=== PATIENT | female | born 1960 | race Caucasian/White ===

== ENCOUNTER → 2019-10-17 16:00 | Outpatient (CLI) | payer OTHER, SELFPAY ==
--- NOTE | 2019-10-17 | DI.MG.S_ITS ---
BILATERAL DIGITAL SCREENING MAMMOGRAM 3D/2D WITH CAD WITH AUGMENTATION: 10/17/2019 CLINICAL: Routine screening. Comparison is made to exams dated: 12/16/2017 mammogram, 04/08/2016 mammogram, and 08/20/2014 mammogram - outside location. There are scattered fibroglandular elements in both breasts. Current study was also evaluated with a Computer Aided Detection (CAD) system. There is a possible new asymmetry in the left breast middle depth central to the nipple seen on the craniocaudal view only. There also is possible architectural distortion in the left breast posterior depth superior region seen on the mediolateral oblique view only. Stable retropectoral implants. No other significant masses, calcifications, or other findings are seen in either breast. IMPRESSION: INCOMPLETE: NEEDS ADDITIONAL IMAGING EVALUATION The possible new asymmetry in the left breast middle depth central to the nipple seen on the craniocaudal view only is indeterminate. Additional views with possible ultrasound are recommended. The possible architectural distortion in the left breast posterior depth superior region seen on the mediolateral oblique view only is indeterminate. Additional views with possible ultrasound are recommended. This exam was interpreted at Station ID: [id number]. NOTE: For mammograms, a report in lay terms will be sent to the patient. Approximately 15% of breast malignancies will not be visualized mammographically. In the management of a palpable breast mass, a negative mammogram must not discourage biopsy of a clinically suspicious lesion. Electronically Signed By: Johnny Sullivan M.D. slc/:10/18/2019 13:07:05 letter sent: Additional Imaging Needed ACR BI-RADS Category 0: Incomplete [id number]
== END ==
PROVIDERS: PCP Family Medicine; Referring Provider Family Medicine; Visit Provider Family Medicine
DX: Z12.31 Encounter for screening mammogram for malignant neoplasm of breast (principal)
CPT/HCPCS: 77063; 77067

== ENCOUNTER → 2019-11-09 08:34 | Outpatient (CLI) | payer OTHER, SELFPAY ==
--- NOTE | 2019-11-09 09:01 | DI.MG.S_ITS ---
Patient Name: JC PLASENCIA date: 1960 Sex: F Attending Physician: Tonja Indications: Date: 11/09/2019 08:51 At the request of: SP HYDE Procedure: MM special view LT UNILATERAL LEFT DIGITAL DIAGNOSTIC MAMMOGRAM 3D/2D WITH ADDITIONAL VIEWS: 11/09/2019 CLINICAL: Additional evaluation requested from prior study. Comparison is made to exams dated: 10/17/2019 mammogram - [facility], 12/16/2017 mammogram, and 04/08/2016 mammogram - outside location. There are scattered fibroglandular elements in left breast. The oval asymmetry with indistinct margins in the left breast posterior depth central to the nipple seen on the craniocaudal view only is not seen on additional views. The possible architectural distortion in the left breast posterior depth superior region seen on the mediolateral oblique view only is not seen on additional views. No other significant masses or calcifications are seen in the breast. IMPRESSION: BENIGN There is no mammographic evidence of malignancy. A 1 year screening mammogram is recommended. This exam was interpreted at Station ID: [id number]. NOTE: For mammograms, a report in lay terms will be sent to the patient. Approximately 15% of breast malignancies will not be visualized mammographically. In the management of a palpable breast mass, a negative mammogram must not discourage biopsy of a clinically suspicious lesion. Electronically Signed By: Moisés Quiroz M.D. ddp/:11/09/2019 09:26:47 Continued Report - Page 2 of 2 Patient Name: JC PLASENCIA date: 1960 Sex: F Attending Physician: Tonja Indications: Date: 11/09/2019 08:51 At the request of: SP HYDE Procedure: MM special view LT letter sent: Normal Exam ACR BI-RADS Category 2: Benign Finding(s) 3342F
== END ==
PROVIDERS: Referring Provider Family Medicine; Visit Provider Family Medicine
DX: R92.8 Other abnormal and inconclusive findings on diagnostic imaging of breast (principal)
CPT/HCPCS: 77065; G0279

== ENCOUNTER → 2021-02-09 09:17 | Outpatient (CLI) | payer OTHER, SELFPAY ==
--- NOTE | 2021-02-09 | DI.MG.S_ITS ---
BILATERAL DIGITAL SCREENING MAMMOGRAM 3D/2D WITH CAD WITH AUGMENTATION: 02/09/2021 CLINICAL: Routine screening. Comparison is made to exams dated: 10/17/2019 mammogram - [facility], 12/16/2017 mammogram, and 04/08/2016 mammogram - outside location. There are scattered fibroglandular elements in both breasts. Current study was also evaluated with a Computer Aided Detection (CAD) system. There is a new 1 cm oval equal density focal asymmetry in the left breast at 6 o'clock posterior depth. No other significant masses, calcifications, or other findings are seen in either breast. IMPRESSION: INCOMPLETE: NEEDS ADDITIONAL IMAGING EVALUATION The new 1 cm oval equal density focal asymmetry in the left breast resembles a cyst and is indeterminate. Additional views with possible ultrasound are recommended. This exam was interpreted at Station ID: [id number]. NOTE: For mammograms, a report in lay terms will be sent to the patient. Approximately 15% of breast malignancies will not be visualized mammographically. In the management of a palpable breast mass, a negative mammogram must not discourage biopsy of a clinically suspicious lesion. Electronically Signed By: Saravanan belle/ivelisse:02/09/2021 11:18:32 letter sent: Additional Imaging Needed ACR BI-RADS Category 0: Incomplete [id number]
== END ==
PROVIDERS: PCP Student in an Organized Health Care Education/Training Program; Referring Provider Student in an Organized Health Care Education/Training Program; Visit Provider Student in an Organized Health Care Education/Training Program
DX: Z12.31 Encounter for screening mammogram for malignant neoplasm of breast (principal)
CPT/HCPCS: 77063; 77067

== ENCOUNTER → 2021-03-16 12:05 | Outpatient (CLI) | payer OTHER, SELFPAY ==
--- NOTE | 2021-03-16 | DI.MG.S_ITS ---
UNILATERAL LEFT DIGITAL DIAGNOSTIC MAMMOGRAM 3D/2D WITH ADDITIONAL VIEWS: 03/16/2021 CLINICAL: Additional evaluation requested from prior study. Comparison is made to exams dated: 02/09/2021 mammogram, 11/09/2019 mammogram, 10/17/2019 mammogram - [facility], 12/16/2017 mammogram, and 04/08/2016 mammogram - outside location. There are scattered fibroglandular elements in left breast. There is a new 1 cm oval equal density focal asymmetry in the left breast at 6 o'clock posterior depth. No other significant masses or calcifications are seen in the breast. IMPRESSION: INCOMPLETE: NEEDS ADDITIONAL IMAGING EVALUATION Focal asymmetry in the left breast is indeterminate. A targeted ultrasound is recommended and will immediately follow. This exam was interpreted at Station ID: [id number]. NOTE: For mammograms, a report in lay terms will be sent to the patient. Approximately 15% of breast malignancies will not be visualized mammographically. In the management of a palpable breast mass, a negative mammogram must not discourage biopsy of a clinically suspicious lesion. Electronically Signed By: Johnny Sullivan M.D. slc/:03/16/2021 12:36:12 ACR BI-RADS Category 0: Incomplete [id number]
--- NOTE | 2021-03-16 | DI.US.S_ITS ---
LIMITED ULTRASOUND OF LEFT BREAST AND AXILLA: 03/16/2021 CLINICAL: Patient returns today to evaluate a focal asymmetry in the left breast. Comparison is made to exams dated: 03/16/2021 mammogram, 02/09/2021 mammogram, 11/09/2019 mammogram, 10/17/2019 mammogram - [facility], 12/16/2017 mammogram, and 04/08/2016 mammogram - outside location. Color flow and real-time ultrasound of the left breast axilla were performed. Delacruz scale images of the real-time examination were reviewed. There is a 1.6 cm x 1.2 cm x 0.9 cm oval mass with a spiculated margin in the left breast at 5 o'clock posterior depth 2 cm from the nipple. This oval mass is heterogeneously echogenic. This correlates with mammography findings. Color flow imaging demonstrates that there is vascularity present. No significant abnormalities were seen sonographically in the left axilla. IMPRESSION: SUSPICIOUS OF MALIGNANCY The 1.6 cm x 1.2 cm x 0.9 cm oval mass in the left breast is at a high suspicion for malignancy. An ultrasound guided biopsy is recommended. Exam findings were discussed with the patient by Dr. Theodore. This exam was interpreted at Station ID: [id number]. Electronically Signed By: Johnny Sullivan M.D. [facility] [place]/:03/16/2021 13:25:43 letter sent: Biopsy Required Ultrasound BI-RADS: 4c High suspicion of malignancy
== END ==
PROVIDERS: PCP Student in an Organized Health Care Education/Training Program; Referring Provider Student in an Organized Health Care Education/Training Program; Visit Provider Student in an Organized Health Care Education/Training Program
DX: R92.2 Inconclusive mammogram (principal); N63.23 Unspecified lump in the left breast, lower outer quadrant
CPT/HCPCS: 76642; 77065; G0279

== ENCOUNTER → 2021-03-27 07:50 | Outpatient (CLI) | payer OTHER, SELFPAY ==
--- NOTE | 2021-03-27 | DI.US.S_ITS ---
ULTRASOUND GUIDED BIOPSY LEFT BREAST USING VACUUM DEVICE WITH MARKING DEVICE INSERTED AND POST MAMMOGRAPHIC IMAGIN03/27/2021 CLINICAL: Left breast mass. Left breast lump-post clip. PATIENT CONSENT: Risks (minor bleeding, infection, vasovagal reaction and repeat procedure), benefits and alternatives were explained to the patient and written informed consent was obtained. Correlation is made to exams dated: 03/16/2021 ultrasound, 03/16/2021 mammogram, 02/09/2021 mammogram, and 11/09/2019 mammogram - [facility]. An ultrasound guided biopsy using real-time ultrasound was performed for the concerning 1.6 cm x 1.2 cm x 0.9 cm oval mass located in the left breast at 5 o'clock posterior depth 2 cm from the nipple. This was described on the previous ultrasound report. The skin was prepped in the usual manner. Local anesthetic was administered to the access site. A small incision was made in the breast. The abnormality was approached from the lateral aspect. A 10 gauge biopsy needle was placed adjacent to the abnormality under ultrasound guidance. Once the needle was documented to be in the correct location, four specimens were obtained using the Mammotome biopsy system. A hydromark clip was inserted into the biopsy cavity. A skin closure strip and a sterile dressing were applied to the access site. Post procedure mammographic imaging demonstrates the location device at the targeted area. The specimens were sent to the laboratory for pathological analysis. IMPRESSION: ULTRASOUND GUIDED BIOPSY MALIGNANT Ultrasound guided biopsy of the 1.6 cm x 1.2 cm x 0.9 cm mass in the left breast at 5 o'clock posterior depth 2 cm from the nipple was successful. 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 Pathology results are concordant with imaging findings. A surgical/oncologic consultation is recommended. Results and recommendations will be communicated to the ordering provider's office. This exam was interpreted at Station ID: [id number]. Alex reyes,krjeancarlos/:04/13/2021 09:27:10
--- NOTE | 2021-03-27 | DI.MG.S_ITS ---
UNILATERAL LEFT DIGITAL DIAGNOSTIC MAMMOGRAM 3D/2D POST-EXCISIONAL BIOPSY WITH AUGMENTATION: 03/27/2021 CLINICAL: Post clip. Comparison is made to exam dated: 03/16/2021 mammogram - [facility]. There are scattered fibroglandular elements in left breast. There is a marker clip in the appropriate position in the left breast at 6 o'clock posterior depth 2 cm from the nipple. This marker clip placement is at the biopsy site. IMPRESSION: POST PROCEDURE MAMMOGRAM FOR MARKER PLACEMENT There was a successful marker clip placement in the left breast posterior depth. Follow-up with ACR/ACS guidelines. Future imaging is recommended as follows: 04/16/2021 . This exam was interpreted at Station ID: Unknown. NOTE: For mammograms, a report in lay terms will be sent to the patient. Approximately 15% of breast malignancies will not be visualized mammographically. In the management of a palpable breast mass, a negative mammogram must not discourage biopsy of a clinically suspicious lesion. Electronically Signed By: barbra Hopper M.D., M.D./ivelisse:04/21/2021 14:52:23 ACR BI-RADS Category Post-procedure mammogram for marker placement
--- NOTE | 2021-03-27 | PATH_ITS ---
[facility] Accession Number: [id number] . 01 Material submitted: . breast - LEFT BREAST MASS 5:00 2CMFN . 02 Diagnosis: Left Breast Mass, 5 o'clock, 2 cm from Nipple, Needle Core Biopsy: Classic adenoid cystic carcinoma. No high grade (basaloid) features identified. Please see Cancer Case Summary. . . CANCER CASE SUMMARY: . Specimen Procedure: Needle core biopsy. Laterality: Left. . Tumor Tumor site: 5 o'clock, 2 cm from nipple; lower outer quadrant. Histologic type: Adenoid cystic carcinoma, classic type (tubular and cribriform growth patterns). Tumor size: Present in three of three tissue fragments, greatest dimension of largest focus is 1.5 cm. Carcinoma in-situ: Not identified. Lymphovascular invasion: Not identified. Perineural invasion: Not identified. Solid growth / basaloid pattern: Not identified. [facility] 04/03/2021 1505 Local . 02 Comment: As part of routine water quality assistant, Dr. Lcoo also reviewed this case and agrees with the diagnosis. . Results discussed with Dr. Ponce on 04-03-21 at [facility] 1:08 p.m. . 02 Electronically signed: . Jihan Etienne MD, Pathologist NPI- [id number] . 01 Gross description: . Received one formalin-filled container, labeled with the patient's name and designated left breast mass 5 o'clock 2 cm FN. The specimen is received with a plastic filter in container, sample loose in container and consists of multiple fragments of yellow-ness soft tissue which range in size from 0.1 x 0.1 x 0.1 cm to 1.4 x 0.2 x 0.2 cm. The specimen is entirely submitted in one cassette. Possible collection date and time per requisition: 03/27/21 at 9:01. Total fixation time: Approximately 41 hours. (DC:[id number]) /[facility] 03/28/2021 1608 Local . 02 Microscopic: . An immunohistochemistry study is performed to evaluate the cells of interest. The control stain shows appropriate reactivity. . RESULTS: ER: Negative. MT: Negative. HER2: Negative at 1+. VADIM-3: Negative. Myosin: Myoepithelial / basaloid cells diffusely positive. P63: Myoepithelial / basaloid cells diffusely positive. CD117: Luminal / ductal epithelial cells positive. CK 7: Luminal / ductal epithelial cells positive. CD10: Myoepithelial / basaloid cells positive. PAS: Positive secretions within true lumina. . The neoplastic cells demonstrate PAS positive intraluminal material. Immunostaining demonstrates the presence of a dual cell population. The myoepithelial / basaloid cells are immunopositive for p63, CK10, and smooth muscle myosin. The luminal / ductal epithelial cells are immunopositive for CD117 and CK7. The neoplastic cells are immunonegative for VADIM-3, ER, MT, and HER2 (1+). These findings are most consistent with an adenoid cystic carcinoma of the breast, classic tubular and cribriform pattern. No solid growth pattern / basaloid / high grade features are identified. . * This test was developed and its performance characteristics determined by [facility]. It has not been cleared or approved by the U.S. Food and Drug Administration. The FDA has determined that such clearance or approval is not necessary. This test is used for clinical purposes. It should not be regarded as investigational or for research. . 02 Pathologist provided ICD-10: C50.912 . 02 CPT . 859953, M58274, C88842, 305257 Performed at: 01 [facility] [address] [facility], [place], [place] [id number] MD Moisés Castellanos MD Phone: [phone] Performed at: 02 [facility] [place] [address] [place], [place] [id number] MD Shelby Merritt MD Phone: [phone]
== END ==
PROVIDERS: PCP Student in an Organized Health Care Education/Training Program; Referring Provider Student in an Organized Health Care Education/Training Program; Visit Provider Student in an Organized Health Care Education/Training Program
DX: C50.512 Malignant neoplasm of lower-outer quadrant of left female breast (principal); Z17.1 Estrogen receptor negative status [ER-]
CPT/HCPCS: 19083; 77065

== ENCOUNTER → 2021-04-10 10:48 | Outpatient (CLI) | payer OTHER, SELFPAY ==
[2021-04-10 12:56] LABS: COVID19 -Nasal RAPID Negative (Negative)
== END ==
PROVIDERS: PCP Student in an Organized Health Care Education/Training Program; Visit Provider Family Medicine Sleep Medicine
DX: Z20.822 Contact with and (suspected) exposure to COVID-19 (principal)
CPT/HCPCS: 87635; C9803

== ENCOUNTER 2021-04-16 10:32 | Day surgery (SDC) | payer OTHER, SELFPAY ==
[2021-04-10 13:17] VITALS: BMI 41.8
[2021-04-16] VITALS (15 sets, daily range): BP systolic 117–149; BP diastolic 51–75; PULSE 61–98; RESP 14–18; TEMP 36.2–36.9; O2SAT 91–100; BMI 41.8
--- NOTE | 2021-04-16 | DI.MG.S_ITS ---
SPECIMEN LEFT BREAST: 04/16/2021 CLINICAL: Left surgical specimen. Correlation is made to exams dated: 03/27/2021 mammogram, 03/27/2021 ultrasound biopsy, and 03/16/2021 mammogram - [facility]. Three partial mastectomy specimens were imaged for the concerning indistinct oval mass located in the left breast at 6 o'clock middle depth. This was described on the previous mammography and ultrasound reports. IMPRESSION: SPECIMEN The imaged specimens include the mass and a biopsy clip. The specimens show characteristics of the mammographic and sonographic findings. This exam was interpreted at Station ID: [id number]. Moisés Quiroz M.D. ddp/:04/16/2021 15:26:39
--- NOTE | 2021-04-16 | PATH_ITS ---
[facility] Accession Number: [id number] No. of containers..01 Tissue . 01 Material submitted: . breast - LEFT BREAST . 01 Clinical history: . LEFT BREAST, LONG STITCH LATERAL . 02 Diagnosis: A. Left Breast, Simple Mastectomy: Adenoid cystic carcinoma, grade 2 of 3 ([place] combined histologic grade, total score 6/9) with the following features: 1. Tumor size (invasive component): 15 mm, by microscopic measurement. 2. Nuclear pleomorphism: Intermediate. (2/3) 3. Mitotic rare: Low. (1/3) 4. Tubular differentiation: Moderate to little degree. (2-3/3) 5. Ductal carcinoma in situ: Absent. 6. Calcifications: Present, in association with benign breast tissue. 7. Lymphatic or perineural invasion: Not identified. 8. Resection margins: Negative, with the closest distances to margins as follows: - Anterior inferior margin: 2.5 mm. - Anterior superior and posterior margins: More than 10 mm. 9. Breast biomarkers performed on prior biopsy ([facility] Case #[id number], 03/27/2021), per the report: - Estrogen receptor status: Negative. - Progesterone receptor status: Negative. - HER2 status: Negative. 10. Regional lymph node status: No lymph nodes submitted or identified within the specimen. 11. Additional findings: - Rare focus of atypical ductal hyperplasia. - Skin and nipple areolar complex are not involved by carcinoma. - Background of breast parenchyma with florid usual ductal hyperplasia, columnar cell change/columnar cell hyperplasia, and focal apocrine metaplasia. - Biopsy site changes/marker are identified. - Skeletal muscle and/or chest wall are not present for evaluation. 12. Pathologic stage: pT1c pNX. . . COMMENT: The grading of adenoid cystic carcinoma using Marie grading system is challenging. The adenoid cystic carcinoma demonstrates a classic morphology with a mixture of tubular and cribriform glandular patterns. There is no evidence of basaloid or high-grade features. [facility] 04/20/2021 1703 Local . 02 Electronically signed: . Marina Loco MD, Pathologist NPI- [id number] . 01 Gross description: . Received in formalin labeled with the patient's name and additionally labeled left breast, long stitch lateral is a mastectomy specimen measuring 19.0 ML x 12.0 SI x 6.2 AP cm. There is an overlying ellipse of skin measuring 15.5 ML x 3.2 SI cm. The ill-defined nipple areolar complex measures 2.2 x 2.2 cm and the nipple measures 1.0 x 0.9 x 0.3 cm. The specimen is received with a suture designated by the surgeon to represent the lateral aspect of the specimen. The specimen is inked as follows: superior anterior blue, inferior anterior orange, and posterior black. The posterior fascia moves freely. The specimen is serially sectioned from medial to lateral revealing an ill-defined firm nodule measuring 1.1 x 1.0 x 0.6 cm in the lower outer quadrant. The mass is free of the anterior inferior orange inked margin by 1.0 cm and is widely free of other inked margins. The mass is sectioned further revealing pale guzmán cut surfaces and a cavity containing a biopsy marker. The remaining cut surfaces consists of predominantly yellow lobated adipose tissue and approximately 10-20 percent fibrous breast parenchyma. No other masses or lesions are identified. Over Short And Damage Clerk sections are submitted as follows: . A1-A4 - Mass, sectioned and entirely submitted. A5-A6 - Composite section of nipple areolar complex. A7 - Fibrous parenchyma from the lateral aspect of the specimen. A8 - Fibrous breast parenchyma from the medial aspect of the specimen. (MS:[id number]) /[facility] 04/17/2021 1643 Local . 02 Pathologist provided ICD-10: C50.912 . 02 CPT . 080933 Specimen Comment: A courtesy copy of this report has been sent to [phone] Performed at: [facility] [address] [place] [address] [address] [facility], [place], [place] [id number] MD Moisés Castellanos MD Phone: [phone] Performed at: 02 [facility] [id number] [place] [id number] MD Shelby Merritt MD Phone: [phone]
[2021-04-16 11:05] LABS: COVID19 -Nasal RAPID Negative (Negative)
--- NOTE | 2021-04-16 11:08 | PM.PREOP ---
Pre-operative Note COVID-19 COVID-19 status: Negative Result date/Date tested (Pos, Neg/Pending): 04/10/21 Criteria for continued procedure: Deterioration of the patient's condition or overall health and Delay expected to result in less-positive ultimate med/surg outcome Interval Note History & Physical reviewed/Exam performed by Physician: Yes Changes to H&P: No ASA Class (for procedural sedation): II
[2021-04-16] MEDS: ACETAMINOPHEN 325 MG TABLET 975 MG PO (11:12)
[2021-04-16] MEDS: GABAPENTIN 300 MG CAPSULE PO (11:12)
[2021-04-16] MEDS: SCOPOLAMINE 1 PATCH TOP (11:13)
[2021-04-16] MEDS: LACTATED RINGERS 1,000 ML 42 ML IV ×2 (11:49→13:13)
[2021-04-16] MEDS: CEFAZOLIN 2 GM/20 ML SYRINGE IV (11:59)
--- NOTE | 2021-04-16 12:16 | SUR.OPER ---
Supine on padded OR bed, head on gel donut, arms secured on padded arm boards at <90 degrees abduction, legs uncrossed, lower legs propped by two pillows, safety belt at thigh, tape over blanket over lower legs, foam ramp under torso.
[2021-04-16] MEDS: BUPIVACAINE 0.5% (PF) 30 ML, EPINEPHrine 0.15 MG INJ (12:32)
[2021-04-16] MEDS: LIDOCAINE 1% 20 ML INJ (12:33)
--- NOTE | 2021-04-16 14:18 | P.OP_ITS ---
Operative Date/Time/Diagnoses Date of procedure: 04/16/21 Time of procedure: 14:18 Pre-op diagnosis: Left breast cancer Post-op diagnosis: same Procedure & Clinicians Procedure: Left simple mastectomy Same procedure as scheduled: Yes Indications: Left breast cancer Surgeon: Roberto Barnhart Anesthesia Type: General Operative Notes Procedure in detail: Preoperative antibiotics were given. The patient was brought to the operating room, placed on the table in the supine position and general anesthesia was induced via LMA. The arms were abducted on arm boards. The left breast and axilla were prepped and draped in the usual fashion. A time-out was performed. We made an elliptical skin incision encompassing the left areola and curving towards the axilla laterally. We used cautery to enter the plane between the b reast tissue in the subcutaneous adipose tissue. We developed the superior flap first. We carried the dissection to the superior aspect of the breast tissue and when we saw pectoralis muscle we started to turn and lift the breast off the pectoral fascia. Her breast tissue did not extend to the clavicle due to her age and laxity. We then created an inferior flap and dissected the breast tissue down to the inframammary fold. The old implant was visible sticking out from under the lateral and inferior portion of the pectoral muscle. It remained encapsulated we did not enter the capsule. We carried the dissection laterally to the edge of the latissimus muscle. We then removed the breast tissue from the field. We used a single silk stitch to roberto the lateral aspect. Finally, we irrigated the wound cavity with 2 L of saline. We checked for hemostasis and addressed a few small bleeders with cautery. We injected additional local into the muscle and fascia. We then placed 2 drains into the field. Drains were secured to the skin with a 2-0 nylon stitch. We then closed the incision in layers using interrupted 3-0 Vicryl dermal sutures followed by running 4-0 Monocryl subcuticular stitch. Dressings were applied and the patient was brought to recovery room. EBL: 20 mL Post-operative Condition: stable Disposition: PACU
--- NOTE | 2021-04-16 15:40 | PC.NURSE ---
Assess- Patient is alert and oriented x3.. She had a l. mastectomy and her incision and dressing are cdi. Patient has two melanie drains that are labeled one and two with minimal output in both.. Patient is resting comfortably now and denies pain.
[2021-04-16] MEDS: HYDROCODONE/ACET 5/325 TABLET 1 TAB PO (17:23)
[2021-04-16] MEDS: ACETAMINOPHEN 325 MG TABLET 650 MG PO (21:58)
[2021-04-17 03:00] VITALS: BP 104/47; PULSE 66; RESP 16; TEMP 36.2; O2SAT 94
[2021-04-17] MEDS: ACETAMINOPHEN 325 MG TABLET 650 MG PO ×2 (03:18→09:47)
[2021-04-17 08:52] VITALS: BP 127/52; PULSE 65; RESP 18; TEMP 36.6; O2SAT 98
[2021-04-17 10:27] VITALS: BP 122/58; PULSE 60; RESP 16; TEMP 36.8; O2SAT 97
--- NOTE | 2021-04-17 12:15 | PC.NURSE ---
Patient is a&ox4, dressing to l.breast mastectomy is cdi. Dr. Keenan into see patient and has taken dressing off with just some gauze on this. MERVIN drain 1 and 2 putting out minimal ss drainage. PT using tylenol for pain as she does not like the way vicodin makes her feel. Sitting up in the chair and eating breakfast.
== END 2021-04-17 14:11 | disposition home or self-care (01) ==
LOC: OR 15:16 → AC 15:17
PROVIDERS: PCP Student in an Organized Health Care Education/Training Program; Referring Provider Surgery; Visit Provider Surgery
PROC: 0HTU0ZZ Resection of Left Breast, Open Approach (ICD-10-PCS; CPT 19303; principal; 2021-04-16 11:45)
DX: C50.912 Malignant neoplasm of unspecified site of left female breast (principal); Z17.1 Estrogen receptor negative status [ER-]; E66.01 Morbid (severe) obesity due to excess calories; Z68.41 Body mass index [BMI] 40.0-44.9, adult; J45.20 Mild intermittent asthma, uncomplicated; G47.33 Obstructive sleep apnea (adult) (pediatric); K21.9 Gastro-esophageal reflux disease without esophagitis
CPT/HCPCS: 19303; 76098; 82962; 87635; J0171; J0330; J0690; J1100; J1885; J2250; J2405; J2704; J3010

== ENCOUNTER → 2022-03-16 13:59 | Outpatient (CLI) | payer OTHER, SELFPAY ==
[2021-04-16 15:21] VITALS: BMI 41.8
--- NOTE | 2022-03-16 | DI.MG.S_ITS ---
UNILATERAL RIGHT DIGITAL SCREENING MAMMOGRAM 3D/2D WITH CAD POST MASTECTOMY WITH AUGMENTATION: 03/16/2022 CLINICAL: Routine screening. Breast cancer. Comparison is made to exams dated: 02/09/2021 mammogram, 10/17/2019 mammogram - [facility], and 12/16/2017 mammogram - outside location. There are scattered areas of fibroglandular density in the right breast (category b / 25%-50% glandular tissue). Current study was also evaluated with a Computer Aided Detection (CAD) system. Right breast implant is stable. No significant masses, calcifications, or other findings are seen in the breast. There has been no significant interval change. IMPRESSION: NEGATIVE There is no mammographic evidence of malignancy. A 1 year screening mammogram is recommended. This exam was interpreted at Station ID: [id number]. NOTE: For mammograms, a report in lay terms will be sent to the patient. Approximately 15% of breast malignancies will not be visualized mammographically. In the management of a palpable breast mass, a negative mammogram must not discourage biopsy of a clinically suspicious lesion. Electronically Signed By: Fady holder/ivelisse:03/16/2022 14:52:57 letter sent: Normal Exam ACR BI-RADS Category 1: Negative 3341F
== END ==
PROVIDERS: PCP Student in an Organized Health Care Education/Training Program; Referring Provider Student in an Organized Health Care Education/Training Program; Visit Provider Student in an Organized Health Care Education/Training Program
DX: Z12.31 Encounter for screening mammogram for malignant neoplasm of breast (principal); Z85.3 Personal history of malignant neoplasm of breast
CPT/HCPCS: 77063; 77067

== ENCOUNTER → 2022-05-02 10:20 | Outpatient (CLI) | payer OTHER, SELFPAY ==
[2021-04-16 15:21] VITALS: BMI 41.8
--- NOTE | 2022-05-02 10:22 | DI.MRI.S_ITS ---
PROCEDURE: MR KNEE LT WO CON INDICATIONS: LEFT KNEE PAIN TECHNIQUE: Noncontrast sagittal PD fast spin echo and T2 fast spin echo with fat saturation, sagittal 3-D FLASH with fat saturation; coronal T1 spin echo and PD fast spin echo with fat saturation, and axial PD fast spin echo with fat saturation through the knee. COMPARISON: None. FINDINGS: Image quality: Excellent. Menisci: Oblique tear involving anterior horn of medial meniscus is seen extending to inferior articulating surface. The lateral meniscus is intact. The meniscal root ligaments appear intact. Cruciate ligaments: The anterior and posterior cruciate ligaments appear intact. Medial structures: The medial collateral ligament appears mildly thickened with adjacent soft tissue edema. The posterior oblique ligament, semimembranosus tendon insertions, oblique popliteal ligament, and meniscocapsular junction appear intact. Visualized portions of the pes anserinus tendons appear normal. No abnormal bursal fluid. Lateral structures: The lateral collateral ligament, long and short heads of the biceps femoris tendon appear intact. The popliteus tendon appears normal; the popliteofibular ligament appears intact. Iliotibial band appears normal. Anterior structures: The quadriceps and patellar tendons appear intact. Patellar alignment is normal. No femoral trochlear dysplasia or ventral trochlear prominence. No edema in the infrapatellar fat pad. 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 Marrow edema is seen involving weight-bearing portion and anterior portion of medial femoral condyle and anterior portion of adjacent medial tibial plateau likely represent contusion versus changes related to osteoarthritis. Low-grade chondromalacia in lateral femoral tibial compartment is also seen. Patellar cartilage is intact and lateral facet of patella cartilage is also noted. No fracture or dislocation. Joint space: There is small amount of joint fluid. No Medina's cyst. Normal appearing synovial plicae are incidentally noted. IMPRESSION: 1. Oblique tear involving anterior horn of medial meniscus extending to inferior articulating surface. Lateral meniscus is intact. 2. Anterior and posterior cruciate ligaments are intact. Low-grade MCL sprain. 3. [id number] tricompartmental osteoarthritis and chondromalacia most notably in medial femoral tibial compartment as above. No fracture or dislocation. 4. Small amount of joint effusion, no gross loose bodies. Dictated by: Mariusz Huff M.D. on 05/03/2022 at 8:34 Approved by: Mariusz Huff M.D. on 05/03/2022 at 8:40
== END ==
PROVIDERS: PCP Student in an Organized Health Care Education/Training Program; Referring Provider Student in an Organized Health Care Education/Training Program; Visit Provider Student in an Organized Health Care Education/Training Program
DX: S83.242A Other tear of medial meniscus, current injury, left knee, initial encounter (principal); S83.412A Sprain of medial collateral ligament of left knee, initial encounter; M17.12 Unilateral primary osteoarthritis, left knee; M94.262 Chondromalacia, left knee; M25.562 Pain in left knee; M25.462 Effusion, left knee
CPT/HCPCS: 73721

== ENCOUNTER → 2023-03-19 11:08 | Outpatient (CLI) | payer OTHER, SELFPAY ==
[2021-04-16 15:21] VITALS: BMI 41.8
--- NOTE | 2023-03-19 | DI.MG.S_ITS ---
UNILATERAL RIGHT DIGITAL SCREENING MAMMOGRAM 3D/2D WITH CAD WITH AUGMENTATION: 03/19/2023 CLINICAL: Routine screening. Personal history of left breast cancer. Comparison is made to exams dated: 03/16/2022 mammogram, 02/09/2021 mammogram, 10/17/2019 mammogram - [facility], and 12/16/2017 mammogram - outside location. The right breast is almost entirely fatty (category a/<25% glandular tissue). Current study was also evaluated with a Computer Aided Detection (CAD) system. Right breast implant is stable. No significant masses, calcifications, or other findings are seen in the breast. There has been no significant interval change. IMPRESSION: NEGATIVE There is no mammographic evidence of malignancy. A 1 year screening mammogram is recommended. This exam was interpreted at Station ID: [id number]. NOTE: For mammograms, a report in lay terms will be sent to the patient. Approximately 15% of breast malignancies will not be visualized mammographically. In the management of a palpable breast mass, a negative mammogram must not discourage biopsy of a clinically suspicious lesion. Electronically Signed By: Nanci lozada/ivelisse:03/21/2023 09:53:24 letter sent: Normal Exam ACR BI-RADS Category 1: Negative 3341F
== END ==
LOC: MAMMO 11:09
PROVIDERS: PCP Student in an Organized Health Care Education/Training Program; Referring Provider Student in an Organized Health Care Education/Training Program; Visit Provider Student in an Organized Health Care Education/Training Program
DX: Z12.31 Encounter for screening mammogram for malignant neoplasm of breast (principal); Z85.3 Personal history of malignant neoplasm of breast
CPT/HCPCS: 77063; 77067

== ENCOUNTER 2024-02-04 20:21 | Emergency (ER) | payer MEDICARE, OTHER, SELFPAY ==
[2021-04-16 15:21] VITALS: BMI 41.8
[2024-02-04] VITALS (7 sets, daily range): BP systolic 139–173; BP diastolic 65–71; PULSE 57–74; RESP 16; TEMP 36.4; O2SAT 96–100; BMI 42.9
[2024-02-04 22:38] LABS: Add Manual Diff / Slide Review NO; Basophils Absolute Auto 100 /uL (0-100); Basophils Percent Auto 1.1 % (0-2); Eosinophils Absolute Auto 100 /uL (0-450); Eosinophils Percent Auto 1.6 % (2-4); Hematocrit 40.4 % (36-46); Hemoglobin 13.5 g/dL (12.0-16.0); Lymphocytes Absolute Auto 1100 /uL (1100-4500); Lymphocytes Percent Auto 17.8 % (25-40); Mean Corpuscular HGB Conc 33.5 % (30-36); Mean Corpuscular Hemoglobin 29.1 PG (26-34); Monocytes Absolute Auto 500 /uL (0-900); Monocytes Percent Auto 7.5 % (3-14); Neutrophils Absolute Auto 4500 /uL (1500-7000); Platelet Count 279 X10^3/uL (150-400); Red Blood Cell Count 4.64 X10^6/uL (4.0-5.2); Red Cell Distribution Width 13.8 % (11.6-14.8); White Blood Cell Count 6.2 X10^3/uL (4.5-11.0)
[2024-02-04 22:50] LABS: Alanine Aminotransferase 73 IU/L (<35); Albumin 3.9 g/dL (3.5-5.0); Albumin Globulin Ratio 1.2 (1.0-2.8); Alkaline Phosphatase 109 U/L (38-126); Aspartate Aminotransferase 157 IU/L (14-36); BUN Creatinine Ratio 30.4 (6-22); Bilirubin Total 1.2 mg/dL (0.2-1.3); Blood Urea Nitrogen 21 mg/dL (7-17); Calcium 9.5 mg/dL (8.4-10.2); Carbon Dioxide 31 mmol/L (22-32); Chloride 105 mmol/L (98-107); Estimated Glomerular Filt Rate > 60 mL/min (>60); Globulin 3.2 g/dL (1.7-4.1); Glucose 111 mg/dL (80-110); HEMOLYSIS 23 (0-50); Potassium 4.1 mmol/L (3.4-5.1); Sodium 138 mmol/L (137-145); Total Protein 7.1 g/dL (6.3-8.2)
[2024-02-04 23:16] LABS: Lipase 12947 U/L (23-300)
--- NOTE | 2024-02-04 23:29 | ED_ITS ---
HPI - General Adult <Noah Stokes DO - Last Filed: 02/09/24 18:07> General Chief complaint: Abdominal Pain Stated complaint: abd px Time Seen by Provider: 02/04/24 23:04 Source: patient Mode of arrival: Ambulatory History of Present Illness HPI narrative: Patient was a 63-year-old female. Approximately 6 weeks ago was seen at an outside facility for abdominal pain. Had a very extensive workup to include CT scan of the abdomen pelvis, right upper quadrant ultrasound and an MRCP. She was diagnosed with cholelithiasis without signs of an acute cholecystitis. During that visit had a bilirubin of 1.5. AST of 96, ALT of 109 and an alk-phos of 139. She was told to follow-up with general surgery. She has followed up with General surgery. She was scheduled for surgery on February 26. She stated that last evening she had discomfort in her upper abdomen that was consistent with the discomfort that she had during her prior visit. No vomiting. It did not seem to be associated with eating. She reports that the discomfort has not improved somewhat at the time of my evaluation from its onset. She denies any urinary symptoms or change in bowel habits. No chest pain or shortness of breath. Related Data Home Medications Medication Instructions Recorded Confirmed albuterol sulfate 90 mcg/actuation 1 inh inhalation QID PRN Allergy 04/08/21 11/10/21 aerosol inhaler (ProAir HFA) Symptoms olopatadine 0.1 % eye drops 1 drp ophthalmic (eye) PRN PRN 04/08/21 11/10/21 Allergy Symptoms omeprazole 20 mg capsule,delayed 20 mg PO PRN PRN Acid Reflux 04/08/21 11/10/21 release Previous Rx's Medication Instructions Recorded acetaminophen 325 mg capsule 650 mg (2 x 325 mg) PO QID PRN 04/17/21 (Tylenol) pain #30 caps Allergies Allergy/AdvReac Type Severity Reaction Status Date / Time Gadolinium-Containing AdvReac Unknown Red skin, Verified 02/04/24 20:28 Contrast Medi 1 hive latex AdvReac ITCHING Verified 02/04/24 20:28 metrizamide AdvReac red skin, Verified 02/04/24 20:28 1 hive tetracaine AdvReac Hives Verified 02/04/24 20:28 Review of Systems <Noah Stokes DO - Last Filed: 02/09/24 18:07> Review of Systems ROS Unobtainable: All systems reviewed & are unremarkable except as noted in HPI and below Patient History <DO Dat Hernandez Last Filed: 02/09/24 18:07> Surgical History (Updated 05/13/21 @ 13:28 by Lavell Lopes MD) Hx of breast implants, bilateral (1987) Social History household members: none Smoking Status: Never smoker alcohol intake: never Smoking Status: Never smoker Substance Use Type: does not use Exam <DO Dat Hernandez Last Filed: 02/09/24 18:07> Initial Vital Signs Initial Vital Signs: Vital Signs Temperature 97.6 F 02/04/24 20:28 Pulse Rate 73 02/04/24 20:28 Respiratory Rate 16 02/04/24 20:28 Blood Pressure 161/67 H 02/04/24 20:28 Pulse Oximetry 99 02/04/24 20:28 Oxygen Delivery Method Room Air 02/04/24 20:28 Const General: cooperative and No ill appearing HENDC Head: normal to inspection and normocephalic Resp Effort & Inspection: normal respiratory effort Auscultation: clear to auscultation bilaterally Cardio Rate: regular rate Rhythm: regular rhythm GI Inspection: normal to inspection and non-distended Palpation: soft, No firm, No guarding and tender Skin General: no rashes or lesions noted Neuro General: patient alert, patient awake and moves all extremities <Inez Cisneros DO - Last Filed: 02/05/24 10:44> Initial Vital Signs Initial Vital Signs: Vital Signs Temperature 97.6 F 02/04/24 20:28 Pulse Rate 73 02/04/24 20:28 Respiratory Rate 16 02/04/24 20:28 Blood Pressure 161/67 H 02/04/24 20:28 Pulse Oximetry 99 02/04/24 20:28 Oxygen Delivery Method Room Air 02/04/24 20:28 Course <DO Dat Hernandez Last Filed: 02/09/24 18:07> Orders Ordered: ED Orders 02/04/24 23:29 US abdomen limited Stat Vital Signs Vital signs: Vital Signs - 8 hr 02/05/24 03:00 02/05/24 03:00 02/05/24 03:30 Temperature Pulse Rate 61 60 Respiratory Rate Blood Pressure 158/67 H Pulse Oximetry 93 95 Oxygen Delivery Method 02/05/24 03:31 02/05/24 03:31 02/05/24 04:00 Temperature Pulse Rate 58 L Respiratory Rate Blood Pressure 147/66 H 141/66 H Pulse Oximetry 94 Oxygen Delivery Method 02/05/24 04:00 02/05/24 04:30 02/05/24 04:30 Temperature Pulse Rate 60 61 Respiratory Rate Blood Pressure 149/68 H Pulse Oximetry 93 94 Oxygen Delivery Method Room Air 02/05/24 05:00 02/05/24 05:01 02/05/24 05:01 Temperature Pulse Rate 61 59 L Respiratory Rate Blood Pressure 139/64 Pulse Oximetry 95 94 Oxygen Delivery Method Room Air 02/05/24 05:30 02/05/24 05:30 02/05/24 06:00 Temperature Pulse Rate 59 L Respiratory Rate Blood Pressure 139/62 145/66 H Pulse Oximetry 94 Oxygen Delivery Method 02/05/24 06:00 02/05/24 06:30 02/05/24 06:30 Temperature Pulse Rate 59 L 62 Respiratory Rate Blood Pressure 119/58 L Pulse Oximetry 95 93 Oxygen Delivery Method 02/05/24 07:00 02/05/24 07:00 02/05/24 09:47 Temperature 98.4 F Pulse Rate 64 65 Respiratory Rate 19 Blood Pressure 132/63 190/79 H Pulse Oximetry 93 99 Oxygen Delivery Method Room Air <Inez Cisneros, - Last Filed: 02/05/24 10:44> Orders Ordered: ED Orders 02/04/24 23:29 US abdomen limited Stat Vital Signs Vital signs: Vital Signs - 8 hr 02/05/24 03:00 02/05/24 03:00 02/05/24 03:30 Temperature Pulse Rate 61 60 Respiratory Rate Blood Pressure 158/67 H Pulse Oximetry 93 95 Oxygen Delivery Method 02/05/24 03:31 02/05/24 03:31 02/05/24 04:00 Temperature Pulse Rate 58 L Respiratory Rate Blood Pressure 147/66 H 141/66 H Pulse Oximetry 94 Oxygen Delivery Method 02/05/24 04:00 02/05/24 04:30 02/05/24 04:30 Temperature Pulse Rate 60 61 Respiratory Rate Blood Pressure 149/68 H Pulse Oximetry 93 94 Oxygen Delivery Method Room Air 02/05/24 05:00 02/05/24 05:01 02/05/24 05:01 Temperature Pulse Rate 61 59 L Respiratory Rate Blood Pressure 139/64 Pulse Oximetry 95 94 Oxygen Delivery Method Room Air 02/05/24 05:30 02/05/24 05:30 02/05/24 06:00 Temperature Pulse Rate 59 L Respiratory Rate Blood Pressure 139/62 145/66 H Pulse Oximetry 94 Oxygen Delivery Method 02/05/24 06:00 02/05/24 06:30 02/05/24 06:30 Temperature Pulse Rate 59 L 62 Respiratory Rate Blood Pressure 119/58 L Pulse Oximetry 95 93 Oxygen Delivery Method 02/05/24 07:00 02/05/24 07:00 02/05/24 09:47 Temperature 98.4 F Pulse Rate 64 65 Respiratory Rate 19 Blood Pressure 132/63 190/79 H Pulse Oximetry 93 99 Oxygen Delivery Method Room Air Medical Decision Making <Noah Stokes, - Last Filed: 02/09/24 18:07> Medical Records Medical records reviewed: Yes I reviewed the patient's medical records. Lab Data Lab results reviewed: Yes I reviewed the patient's lab results. 02/04/24 21:56 02/04/24 21:56 Labs: Lab Results 02/04/24 Range/Units 21:56 WBC 6.2 (4.5-11.0) X10^3/uL RBC 4.64 (4.0-5.2) X10^6/uL Hgb 13.5 (12.0-16.0) g/dL Hct 40.4 (36-46) % MCV 87.0 (80-100) fL MCH 29.1 (26-34) PG MCHC 33.5 (30-36) % RDW 13.8 (11.6-14.8) % Plt Count 279 (150-400) X10^3/uL Neut % (Auto) 72.0 (50-75) % Lymph % (Auto) 17.8 L (25-40) % Tompkins % (Auto) 7.5 (3-14) % Eos % (Auto) 1.6 L (2-4) % Baso % (Auto) 1.1 (0-2) % Neut # (Auto) 4500 (8077-1748) /uL Lymph # (Auto) 1100 (4064-1605) /uL Tompkins # (Auto) 500 (0-900) /uL Eos # (Auto) 100 (0-450) /uL Baso # (Auto) 100 (0-100) /uL Sodium 138 (137-145) mmol/L Potassium 4.1 (3.4-5.1) mmol/L Chloride 105 (98-107) mmol/L Carbon Dioxide 31 (22-32) mmol/L BUN 21 H (7-17) mg/dL Creatinine 0.69 (0.52-1.04) mg/dL Estimated GFR > 60 (>60) mL/min BUN/Creatinine Ratio 30.4 H (6-22) Glucose 111 H (80-110) mg/dL Calcium 9.5 (8.4-10.2) mg/dL Total Bilirubin 1.2 (0.2-1.3) mg/dL AST 157 H (14-36) IU/L ALT 73 H (<35) IU/L Alkaline Phosphatase 109 (38-126) U/L Total Protein 7.1 (6.3-8.2) g/dL Albumin 3.9 (3.5-5.0) g/dL Globulin 3.2 (1.7-4.1) g/dL Albumin/Globulin Ratio 1.2 (1.0-2.8) Lipase 46240 H (23-300) U/L Imaging Data US - abdomen: Radiologist's Impression: PROCEDURE: US ABDOMEN LIMITED INDICATIONS: RUQ pain eval for acute cholecystitis TECHNIQUE: Real-time focused scanning was performed of the abdomen, with image documentation. COMPARISON: None. FINDINGS: Cholelithiasis without sonographic Hardin sign. There are many small stones. CBD is mildly prominent at 8 mm. Liver measures 18 cm, with dense echotexture. IMPRESSION: Cholelithiasis without sonographic Hardin sign. Mildly ectatic CBD measuring 8 mm Increased hepatic echogenicity, nonspecific, most commonly due to steatosis. MDM Narrative Medical decision making narrative: Upon my initial evaluation the patient reports that she has had improvement of her symptoms since the onset however still having right upper quadrant pain. She does not have leukocytosis. Her bilirubin is improved compared to 1 month ago however her AST and ALT early slightly higher. Her lipase now is significantly elevated. It was negative during her last emergency department visit. Right upper quadrant ultrasound shows cholelithiasis without signs of acute cholecystitis. Common bile duct on ultrasound from 1 month ago was 7.5 mm. Measured as 8 mm today. Given her elevated lipase I do have concern for gallstone pancreatitis. Patient denied the offer for pain medication or nausea medication. She was started on fluids. Because there is not a indication of an acute infection will hold on antibiotics for now. I did discuss the case with Dr. Kim with gastroenterology at [facility] who stated that patient most likely will need a ERCP. Delay in contacting the internal medicine provider secondary to how busy the receiving hospital was at the time. Care turned over to day ED provider to continue to follow-up and disposition. <Inez Cisneros, - Last Filed: 02/05/24 10:44> Lab Data Labs: Lab Results 02/04/24 Range/Units 21:56 WBC 6.2 (4.5-11.0) X10^3/uL RBC 4.64 (4.0-5.2) X10^6/uL Hgb 13.5 (12.0-16.0) g/dL Hct 40.4 (36-46) % MCV 87.0 (80-100) fL MCH 29.1 (26-34) PG MCHC 33.5 (30-36) % RDW 13.8 (11.6-14.8) % Plt Count 279 (150-400) X10^3/uL Neut % (Auto) 72.0 (50-75) % Lymph % (Auto) 17.8 L (25-40) % Tompkins % (Auto) 7.5 (3-14) % Eos % (Auto) 1.6 L (2-4) % Baso % (Auto) 1.1 (0-2) % Neut # (Auto) 4500 (3457-3626) /uL Lymph # (Auto) 1100 (7930-4786) /uL Tompkins # (Auto) 500 (0-900) /uL Eos # (Auto) 100 (0-450) /uL Baso # (Auto) 100 (0-100) /uL Sodium 138 (137-145) mmol/L Potassium 4.1 (3.4-5.1) mmol/L Chloride 105 (98-107) mmol/L Carbon Dioxide 31 (22-32) mmol/L BUN 21 H (7-17) mg/dL Creatinine 0.69 (0.52-1.04) mg/dL Estimated GFR > 60 (>60) mL/min BUN/Creatinine Ratio 30.4 H (6-22) Glucose 111 H (80-110) mg/dL Calcium 9.5 (8.4-10.2) mg/dL Total Bilirubin 1.2 (0.2-1.3) mg/dL AST 157 H (14-36) IU/L ALT 73 H (<35) IU/L Alkaline Phosphatase 109 (38-126) U/L Total Protein 7.1 (6.3-8.2) g/dL Albumin 3.9 (3.5-5.0) g/dL Globulin 3.2 (1.7-4.1) g/dL Albumin/Globulin Ratio 1.2 (1.0-2.8) Lipase 06671 H (23-300) U/L [facility] Narrative Medical decision making narrative: Upon my initial evaluation the patient reports that she has had improvement of her symptoms since the onset however still having right upper quadrant pain. She does not have leukocytosis. Her bilirubin is improved compared to 1 month ago however her AST and ALT early slightly higher. Her lipase now is significantly elevated. It was negative during her last emergency department visit. Right upper quadrant ultrasound shows cholelithiasis without signs of acute cholecystitis. Common bile duct on ultrasound from 1 month ago was 7.5 mm. Measured as 8 mm today. Given her elevated lipase I do have concern for gallstone pancreatitis. Patient denied the offer for pain medication or nausea medication. She was started on fluids. Because there is not a indication of an acute infection will hold on antibiotics for now. I did discuss the case with Dr. Kim with gastroenterology at [facility] who stated that patient most likely will need a ERCP. Delay in contacting the internal medicine provider secondary to how busy the receiving hospital was at the time. Care turned over to day ED provider to continue to follow-up and disposition. 02/05/2024 Dr. Cisneros: Patient is seen and evaluated by myself. She states she was doing well no pain at this time. She was aware of the current plan. She is NPO. She was actually scheduled to have cholecystectomy with cholangiography at [facility] but not till February 26 based on her findings Fely. Patient's labs, imaging and prior hospital visit were reviewed. Awaiting call back from the hospitalist at [facility] after shift change. Plan is currently for ERCP with Dr. Kim at [facility]. [phone] Kaiser, hospitalist who accepts for transfer waiting bed assignment. Discharge Plan Departure Patient Disposition: [facility] Clinical Impression: Gallstone pancreatitis, Cholelithiasis Prescriptions: No Action omeprazole 20 mg Capsule,Delayed Release(Dr/Ec) 20 mg PO PRN PRN (Reason: Acid Reflux) Patient Comments: PT IS TAPERING OFF olopatadine 0.1 % Drops 1 drp OPHTHALMIC (EYE) PRN PRN (Reason: Allergy Symptoms) albuterol sulfate [ProAir HFA] 90 mcg/actuation Hfa Aerosol Inhaler 1 inh INHALATION QID PRN (Reason: Allergy Symptoms) acetaminophen [Tylenol] 325 mg capsule 650 mg PO QID PRN (Reason: pain) Qty: 30 0RF Referrals: Lita Ponce MD [Primary Care Provider] -
--- NOTE | 2024-02-04 23:29 | DI.US.S_ITS ---
PROCEDURE: US ABDOMEN LIMITED INDICATIONS: RUQ pain eval for acute cholecystitis TECHNIQUE: Real-time focused scanning was performed of the abdomen, with image documentation. COMPARISON: None. FINDINGS: Cholelithiasis without sonographic Hardin sign. There are many small stones. CBD is mildly prominent at 8 mm. Liver measures 18 cm, with dense echotexture. IMPRESSION: Cholelithiasis without sonographic Hardin sign. Mildly ectatic CBD measuring 8 mm Increased hepatic echogenicity, nonspecific, most commonly due to steatosis. Dictated by: Rosalio Goodman M.D. on 02/05/2024 at 0:23 Approved by: Rosalio Goodman M.D. on 02/05/2024 at 0:24
[2024-02-05] VITALS (23 sets, daily range): BP systolic 119–190; BP diastolic 58–79; PULSE 58–71; RESP 19; TEMP 36.9; O2SAT 93–100
== END 2024-02-05 09:58 | disposition short-term general hospital (02) ==
PROVIDERS: Emergency Medicine; Emergency Provider Emergency Medicine; PCP Student in an Organized Health Care Education/Training Program
DX: K85.10 Biliary acute pancreatitis without necrosis or infection (principal); K80.20 Calculus of gallbladder without cholecystitis without obstruction
CPT/HCPCS: 36415; 76705; 80053; 83690; 85025; 99284

== ENCOUNTER → 2024-03-20 16:42 | Outpatient (CLI) | payer MEDICARE, OTHER, SELFPAY ==
[2021-04-16 15:21] VITALS: BMI 41.8
--- NOTE | 2024-03-20 16:44 | DI.MG.S_ITS ---
UNILATERAL RIGHT DIGITAL SCREENING MAMMOGRAM 3D/2D WITH CAD POST MASTECTOMY WITH AUGMENTATION: 03/20/2024 CLINICAL: Routine screening. Personal history of left breast cancer. Comparison is made to exams dated: 03/19/2023 mammogram, 03/16/2022 mammogram, and 02/09/2021 mammogram - [facility]. The breasts are almost entirely fatty (category a/<25% glandular tissue). Current study was also evaluated with a Computer Aided Detection (CAD) system. Right breast implant is stable. No significant masses, calcifications, or other findings are seen in the breast. There has been no significant interval change. IMPRESSION: NEGATIVE There is no mammographic evidence of malignancy. A 1 year screening mammogram is recommended. This exam was interpreted at Station ID: [id number]. NOTE: For mammograms, a report in lay terms will be sent to the patient. Approximately 15% of breast malignancies will not be visualized mammographically. In the management of a palpable breast mass, a negative mammogram must not discourage biopsy of a clinically suspicious lesion. Electronically Signed By: Nanci lozada/ivelisse:03/21/2024 16:13:48 letter sent: Normal Exam ACR BI-RADS Category 1: Negative
== END ==
LOC: MAMMO 16:43
PROVIDERS: PCP Internal Medicine; Referring Provider Internal Medicine; Visit Provider Internal Medicine
DX: Z12.31 Encounter for screening mammogram for malignant neoplasm of breast (principal); Z85.3 Personal history of malignant neoplasm of breast; R92.313 Mammographic fatty tissue density, bilateral breasts
CPT/HCPCS: 77063; 77067

== ENCOUNTER 2024-04-21 09:31 | Emergency (ER) | payer MEDICARE, OTHER, SELFPAY ==
[2021-04-16 15:21] VITALS: BMI 41.8
[2024-04-21] VITALS (7 sets, daily range): BP systolic 133–150; BP diastolic 59–70; PULSE 71–85; RESP 15–18; TEMP 37; O2SAT 98–100; BMI 44.1
--- NOTE | 2024-04-21 09:49 | EKG_ITS ---
[address] [address] Test Date: 2024-04-21 Pat Name: Abeba Kirkland Department: [facility] Room: Gender: Female Flow Manager: GERRI : 1960 Requested By: Order Number: [id number] Reading MD: Rodrick Arevalo MD Measurements Intervals Cass Rate: 75 P: 37 VA: 134 QRS: 56 QRSD: 100 T: 13 QT: 380 QTc: 424 Interpretive Statements Normal sinus rhythm Electronically Signed On 04-21-2024 12:43:37 PST by Rodrick Arevalo MD
[2024-04-21 10:20] LABS: Add Manual Diff / Slide Review NO; Basophils Absolute Auto 100 /uL (0-100); Basophils Percent Auto 0.8 % (0-2); Eosinophils Absolute Auto 100 /uL (0-450); Hematocrit 43.2 % (36-46); Hemoglobin 14.2 g/dL (12.0-16.0); Lymphocytes Absolute Auto 1000 /uL (1100-4500); Lymphocytes Percent Auto 10.7 % (25-40); Mean Corpuscular HGB Conc 32.8 % (30-36); Mean Corpuscular Hemoglobin 28.8 PG (26-34); Mean Corpuscular Volume 87.7 fL (80-100); Monocytes Absolute Auto 700 /uL (0-900); Monocytes Percent Auto 7.2 % (3-14); Neutrophils Absolute Auto 7600 /uL (1500-7000); Neutrophils Percent Auto 80.3 % (50-75); Platelet Count 309 X10^3/uL (150-400); Red Blood Cell Count 4.92 X10^6/uL (4.0-5.2); Red Cell Distribution Width 13.6 % (11.6-14.8); White Blood Cell Count 9.5 X10^3/uL (4.5-11.0)
[2024-04-21 10:29] LABS: Alanine Aminotransferase 30 IU/L (<35); Albumin 4.5 g/dL (3.5-5.0); Albumin Globulin Ratio 1.4 (1.0-2.8); Alkaline Phosphatase 97 U/L (38-126); Aspartate Aminotransferase 39 IU/L (14-36); BUN Creatinine Ratio 18.3 (6-22); Bilirubin Total 1.4 mg/dL (0.2-1.3); Blood Urea Nitrogen 13 mg/dL (7-17); Calcium 9.4 mg/dL (8.4-10.2); Carbon Dioxide 29 mmol/L (22-32); Chloride 105 mmol/L (98-107); Estimated Glomerular Filt Rate > 60 mL/min (>60); Globulin 3.2 g/dL (1.7-4.1); Glucose 100 mg/dL (80-110); HEMOLYSIS < 15 (0-50); Lipase 71 U/L (23-300); Potassium 3.9 mmol/L (3.4-5.1); Sodium 139 mmol/L (137-145); Total Protein 7.7 g/dL (6.3-8.2)
--- NOTE | 2024-04-21 10:49 | ED.FEMALEGU ---
HPI - Female Genitourinary General Chief complaint: Urogenital-Female Stated complaint: poss bladder infection Time Seen by Provider: 04/21/24 10:40 Mode of arrival: Ambulatory History of Present Illness HPI Narrative: Patient is 63-year-old female history of cholecystectomy, gastric sleeve can not take NSAIDs, breast cancer with mastectomy in 2021, presenting today with abdominal cramping discomfort. She reports that she just had a cholecystectomy in February 2024 since then her bowel habits have been abnormal however this week she has had increased loose stools. In fact she would 1 accident where she was covered in stool all of her back. No nausea or vomiting. No dizziness or lightheadedness. She was having lower abdominal cramping. Reports that she has had headache and low-grade temperature of a 100?. No sore throat cough or shortness of breath. She denies any flank pain Related Data Home Medications Medication Instructions Recorded Confirmed albuterol sulfate 90 mcg/actuation 1 inh inhalation QID PRN Allergy 04/08/21 11/10/21 aerosol inhaler (ProAir HFA) Symptoms olopatadine 0.1 % eye drops 1 drp ophthalmic (eye) PRN PRN 04/08/21 11/10/21 Allergy Symptoms omeprazole 20 mg capsule,delayed 20 mg PO PRN PRN Acid Reflux 04/08/21 11/10/21 release Previous Rx's Medication Instructions Recorded acetaminophen 325 mg capsule 650 mg (2 x 325 mg) PO QID PRN 04/17/21 (Tylenol) pain #30 caps ciprofloxacin HCl 500 mg tablet 500 mg PO BID #20 tabs 04/21/24 (Cipro) metronidazole 500 mg tablet 500 mg PO Q8H 10 days #30 tabs 04/21/24 Allergies Allergy/AdvReac Type Severity Reaction Status Date / Time Gadolinium-Containing AdvReac Unknown Red skin, Verified 04/21/24 09:34 Contrast Medi 1 hive latex AdvReac ITCHING Verified 04/21/24 09:34 metrizamide AdvReac red skin, Verified 04/21/24 09:34 1 hive tetracaine AdvReac Hives Verified 04/21/24 09:34 Patient History Surgical History Hx of breast implants, bilateral (1987) Exam Initial Vital Signs Initial Vital Signs: Vital Signs Temperature 98.6 F 04/21/24 09:34 Pulse Rate 82 04/21/24 09:34 Respiratory Rate 15 04/21/24 09:34 Blood Pressure 146/70 H 04/21/24 09:34 Pulse Oximetry 100 04/21/24 09:34 Oxygen Delivery Method Room Air 04/21/24 09:34 GENERAL: Alert nontoxic 63-year-old and in no acute distress. HEENT: Head atraumatic,EOMI, pupils reactive, face symmetric, moist mucous membranes CARDIOVASCULAR: Regular rate and rhythm without murmurs, rubs or gallops. RESPIRATORY: Breath sounds equal bilaterally, no wheezes rales or rhonchi. ABDOMEN: Soft, nontender. Normoactive bowel sounds all 4 quadrants. No guarding or rebound. EXTREMITIES: Normal range of motion, no clubbing or edema. Neurovascularly intact NEUROLOGICAL: Alert and oriented x4.Normal gait and speech. Cranial nerves II through XII grossly intact. SKIN: Warm, dry, no laceration, no petechiae, no rashes or lesions. Course Orders Ordered: ED Orders 04/21/24 09:49 EKG-12 Lead Stat 04/21/24 10:04 Complete Blood Count AUTO DIFF Stat Comprehensive Metabolic Panel Stat Lipase Stat 04/21/24 10:48 CT abdomen pelvis w con Stat 04/21/24 11:14 Covid-19 + FLU A/B + RSV - PCR Stat Discontinued Medications Ciprofloxacin (Ciprofloxacin 250 Mg Tablet) 500 mg PO NOW ONE Stop: 04/21/24 13:00 Last Admin: 04/21/24 13:05 Dose: 500 mg Documented By: MARIBETH Acetaminophen (Ofirmev) 1,000 mg in 100 mls @ 400 mls/hr IV NOW ONE Stop: 04/21/24 11:02 Last Infusion: 04/21/24 11:23 Dose: Infused Documented By: MARIBETH(2) Admin: 04/21/24 11:09 Dose: 400 mls/hr Documented By: MARIBETH(2) Metronidazole (Metronidazole 500 Mg Tablet) 500 mg PO NOW ONE Stop: 04/21/24 13:00 Last Admin: 04/21/24 13:05 Dose: 500 mg Documented By: MARIBETH Ondansetron HCl (Ondansetron 4 Mg/2 Ml Inj) 4 mg IV NOW PRN PRN Reason: Nausea And Vomiting Last Admin: 04/21/24 11:09 Dose: 4 mg Documented By: MARIBETH(2) Ondansetron HCl (Ondansetron 4 Mg Odt) 4 mg PO NOW PRN PRN Reason: Nausea And Vomiting Vital Signs Vital signs: Vital Signs - 8 hr 04/21/24 09:34 04/21/24 10:03 04/21/24 10:04 Temperature 98.6 F Pulse Rate 82 85 83 Respiratory Rate 15 Blood Pressure 146/70 H Pulse Oximetry 100 98 98 Oxygen Delivery Method Room Air 04/21/24 10:04 04/21/24 10:30 04/21/24 10:31 Temperature Pulse Rate 76 75 Respiratory Rate Blood Pressure 146/70 H Pulse Oximetry 98 98 Oxygen Delivery Method 04/21/24 10:31 04/21/24 11:23 04/21/24 13:23 Temperature Pulse Rate 74 71 Respiratory Rate 18 Blood Pressure 150/66 H 150/60 H 133/59 L Pulse Oximetry 98 100 Oxygen Delivery Method Room Air Room Air MDM - Female Genitourinary Lab Data 04/21/24 10:04 04/21/24 10:04 Labs: Lab Results 04/21/24 04/21/24 Range/Units 10:04 11:14 WBC 9.5 (4.5-11.0) X10^3/uL RBC 4.92 (4.0-5.2) X10^6/uL Hgb 14.2 (12.0-16.0) g/dL Hct 43.2 (36-46) % MCV 87.7 (80-100) fL MCH 28.8 (26-34) PG MCHC 32.8 (30-36) % RDW 13.6 (11.6-14.8) % Plt Count 309 (150-400) X10^3/uL Neut % (Auto) 80.3 H (50-75) % Lymph % (Auto) 10.7 L (25-40) % [place] % (Auto) 7.2 (3-14) % Eos % (Auto) 1.0 L (2-4) % Baso % (Auto) 0.8 (0-2) % Neut # (Auto) 7600 H (4344-5673) /uL Lymph # (Auto) 1000 L (5185-6864) /uL [place] # (Auto) 700 (0-900) /uL Eos # (Auto) 100 (0-450) /uL Baso # (Auto) 100 (0-100) /uL Sodium 139 (137-145) mmol/L Potassium 3.9 (3.4-5.1) mmol/L Chloride 105 (98-107) mmol/L Carbon Dioxide 29 (22-32) mmol/L BUN 13 (7-17) mg/dL Creatinine 0.71 (0.52-1.04) mg/dL Estimated GFR > 60 (>60) mL/min BUN/Creatinine Ratio 18.3 (6-22) Glucose 100 (80-110) mg/dL Calcium 9.4 (8.4-10.2) mg/dL Total Bilirubin 1.4 H (0.2-1.3) mg/dL AST 39 H (14-36) IU/L ALT 30 (<35) IU/L Alkaline Phosphatase 97 (38-126) U/L Total Protein 7.7 (6.3-8.2) g/dL Albumin 4.5 (3.5-5.0) g/dL Globulin 3.2 (1.7-4.1) g/dL Albumin/Globulin Ratio 1.4 (1.0-2.8) Lipase 71 (23-300) U/L SARS-CoV-2 (PCR) Negative (Negative) Influenza A (RT-PCR) Flu a negative (NEGATIVE) Influenza B (RT-PCR) Flu b negative (NEGATIVE) RSV (PCR) Negative (Negative) Urine Dip Bedside Urine Glucose Negative Bedside Urine Bilirubin - Negative Bedside Urine Ketone - Negative Urine Specific [place] 1.010 Bedside Urine Occult Blood - Negative Bedside Urine pH 6.0 Bedside Urine Protein - Negative Bedside Urine Urobilinogen - Negative Bedside Urine Nitrite - Negative Bedside Urine Leukocytes - Negative Esterase Imaging Data CT scan - abdomen/pelvis: Radiologist's Impression: PROCEDURE: CT ABDOMEN PELVIS W CON INDICATIONS: lower ab pain TECHNIQUE: After the administration of intravenous contrast, axial sections acquired from the lung bases to the pubic symphysis. Coronal and sagittal reformats were performed. For radiation dose reduction, the following was used: automated exposure control, adjustment of mA and/or kV according to patient size. COMPARISON: None. FINDINGS: Image quality: Diagnostic. Lower Chest: A small hiatal hernia is incidentally noted. Mammoplasty implants are partially seen. ABDOMEN: Liver: No solid mass. Diffuse fatty liver infiltration is noted. Gallbladder: Cholecystectomy. Biliary ducts: No biliary dilation. Pancreas: No ductal dilation. Spleen: Size is within normal limits. Adrenal Glands: No adrenal nodules. Kidneys and Ureters: No hydronephrosis. No solid mass. No complex renal cystic lesion which requires follow up. Bowel and peritoneum: Focal wall thickening can be seen involving the sigmoid colon, with diverticula formation. There is surrounding inflammatory change, with fascial thickening. A mild amount of free fluid is seen layering within the pelvis. No free air is seen. No abscess is seen. The more proximal colon demonstrates no significant abnormality. No dilated loops of small bowel are seen. Bariatric surgery can be seen. Ventral Wall: No significant ventral hernia. Abdominal Nodes: No retroperitoneal or mesenteric adenopathy by size criteria. Vessels: Aorta and inferior vena cava are normal in size. PELVIS: Pelvic Organs: No adnexal masses are seen on either side. Bladder: No bladder wall thickening, accounting for underdistention. Pelvic Nodes: No enlarged lymph nodes. Miscellaneous: No inguinal hernias are seen. Bones: No aggressive osseous abnormality. IMPRESSION: Moderate sigmoid diverticulitis, without rajat findings of perforation or abscess. When clinically appropriate (following adequate treatment of the patient's current clinical episode) a colonoscopy is recommended for further evaluation for a potential underlying mass (if not already recently done). Additional findings: Mammoplasty implants Small hiatal hernia Bariatric surgery Fatty liver infiltration Cholecystectomy Dictated by: Gutierrez Crook M.D. on 04/21/2024 at 10:51 ECG Data Attestation: I personally reviewed and interpreted this ECG as follows: Interpretation: Normal sinus rhythm rate 75 VA interval 134 QRS 100 QTC 424 MDM Narrative Medical decision making narrative: [facility] CC: Abdominal pain headache Complicating co-morbidities: Gastric sleeve cholecystectomy history of breast cancer Medical records reviewed: Oncology records reviewed from 2021 ED record reviewed from January 2024 Differential considered: Colitis norovirus entero colitis influenza Exam documented above, pertinent findings include: 63-year-old female having lower abdominal pain no significant distention Lab Test results independently reviewed as above. Pertinent findings: No leukocytosis no anemia, CMP no electrolyte abnormality no OCTAVIA, Bilirubin 1.4 AST 39 ALT 30 lipase 71 Independently reviewed EKG as above No ischemia Imaging studies independently reviewed: CT abdomen pelvis shows moderate sigmoid diverticulitis without perforation or abscess Treatments: IV Tylenol Discussion: 63-year-old female presenting to day with low-grade temperature feeling well abdominal cramping. Thought she had a UTI however urinalysis is negative. CT confirms diverticulitis without complication. She has no significant leukocytosis. Discharge Plan Departure Patient Disposition: Home Clinical Impression: Diverticulitis Instructions: DI for Diverticulitis Activity Restrictions/Additional Instructions: *You have been diagnosed with diverticulitis *What to do: At this time you do have diverticulitis. Recommend liquid diet or low-fiber diet for now *Continue to take medications as directed Cipro 500 mg twice a day for 10 days Flagyl 500 mg 3 times a day for 10 days *Follow up with your primary care provider in 2-3 days or call [phone] *Return to ER if you should have increasing abdominal pain bloody stools nausea vomiting [or] any new, worsening or concerning symptoms Prescriptions: New metronidazole 500 mg tablet 500 mg PO Q8H 10 Days Qty: 30 0RF ciprofloxacin HCl [Cipro] 500 mg tablet 500 mg PO BID Qty: 20 0RF No Action omeprazole 20 mg Capsule,Delayed Release(Dr/Ec) 20 mg PO PRN PRN (Reason: Acid Reflux) Patient Comments: PT IS TAPERING OFF olopatadine 0.1 % Drops 1 drp OPHTHALMIC (EYE) PRN PRN (Reason: Allergy Symptoms) albuterol sulfate [ProAir HFA] 90 mcg/actuation Hfa Aerosol Inhaler 1 inh INHALATION QID PRN (Reason: Allergy Symptoms) acetaminophen [Tylenol] 325 mg capsule 650 mg PO QID PRN (Reason: pain) Qty: 30 0RF Referrals: Jarad Mccall MD [Primary Care Provider] - Stand Alone Forms: Patient Portal/API/Survey
[2024-04-21] MEDS: ACETAMINOPHEN IV 1,000 MG/100 ML VIAL 400 MG IV (11:09)
[2024-04-21] MEDS: ONDANSETRON 4 MG/2 ML INJ IV (11:09)
[2024-04-21 11:57] LABS: Influenza A - CEPHEID Flu A NEGATIVE (NEGATIVE); Influenza B - CEPHEID Flu B NEGATIVE (NEGATIVE); Respiratory Syncytial Virus Negative (Negative)
[2024-04-21 12:32] LABS: COVID-19 CEPHEID 4-PLEX PCR Negative (Negative)
[2024-04-21] MEDS: metroNIDAZOLE 500 MG TABLET PO (13:05)
[2024-04-21] MEDS: CIPROFLOXACIN 250 MG TABLET 500 MG PO (13:05)
== END 2024-04-21 13:20 | disposition home or self-care (01) ==
PROVIDERS: Emergency Provider Emergency Medicine; PCP Internal Medicine
DX: K57.32 Diverticulitis of large intestine without perforation or abscess without bleeding (principal); R51.9 Headache, unspecified; R50.9 Fever, unspecified; Z90.49 Acquired absence of other specified parts of digestive tract; Z85.3 Personal history of malignant neoplasm of breast; Z98.84 Bariatric surgery status
CPT/HCPCS: 0241U; 36415; 74177; 80053; 81003; 83690; 85025; 93005; 93010; 96374; 96375; 99284; J0134; J2405; Q9967